=== PATIENT | female | born 1945 ===

== ENCOUNTER 2022-12-27 05:29 | Day surgery (SDC) | payer OTHER ==
[~2022-12-27 05:29] MED LIST: ADULT LOW DOSE81 M1 PO; AMLODIP PO; AVAPRO300 MG PO; FENOF PO; GLUMETZA500 MG PO; GRALISE600 MG PO; OMEPRAZOLE-BIC1 EAC1 PO; SIMVASTATIN20 MG PO; SYNTHROID112 MCG PO; TOPROL XL50 M1 PO
== END 2022-12-27 12:05 | disposition home or self-care (01) ==
LOC: CIR.AMB 05:29
PROVIDERS: ATTEND Surgery
DX: D48.7 Neoplasm of uncertain behavior of other specified sites (principal); L91.0 Hypertrophic scar; R22.2 Localized swelling, mass and lump, trunk; Z20.822 Contact with and (suspected) exposure to COVID-19; I10 Essential (primary) hypertension; E03.9 Hypothyroidism, unspecified; E11.9 Type 2 diabetes mellitus without complications; Z79.84 Long term (current) use of oral hypoglycemic drugs